=== PATIENT | male | born 1970 | race Two or more races ===

== ENCOUNTER 2023-02-05 10:12 | Emergency (ER) | payer OTHER ==
[~2023-02-05] VITALS: Ht 198.1 cm; Wt 99.3 kg
[2023-02-05 14:27] LABS: HEMATOCRIT 47.2 % (39.0-48.0); HEMOGLOBIN 15.5 g/dL (13-16.00); MEAN CELL VOLUME 87.1 fL (80.0-100.00); MEAN CORPUSCULAR HEMOGLOBIN 28.6 pg (27.00-32.0); MEAN CORPUSCULAR HGB CONC 32.9 g/dl (32.0-36.0); PLATELET COUNT 210 K/uL (150-450); RED BLOOD COUNT 5.43 M/uL (4.00-6.00); RED CELL DISTRIBUTION WIDTH 14.1 % (11.5-14.5)
[2023-02-05 14:55] LABS: ALBUMIN 3.6 gm/dL (3.4-5.0); BILIRUBIN TOTAL 1.09 mg/dL (0.3-1.2); CREATININE SERUM 0.94 mg/dL (0.70-1.30); GFR 84.95; GLOBULINA 3.4 G/DL (2.4-3.5); POTASSIUM 3.71 mEq/L (3.5-5.1)
[2023-02-05 16:43] LABS: PH,URINE 7.5 (5.0-8.0); URINE APPEARANCE Clear; URINE BILIRRUBIN Negative (NEGATIVE); URINE BLOOD Negative; URINE COLOR Yellow; URINE GLUCOSE Negative (NEGATIVE); URINE LEUKOCYTE Trace; URINE NITRATE Negative; URINE PROTEIN Negative (NEGATIVE)
[2023-02-05 16:47] LABS: URINE BACTERIA 22.6 uL (0.0-1933); URINE EPITHELIAL CELLS 2.3 uL (0.0-38.8); URINE RBC 4.3 uL (0.0-20.8); URINE WBC 3.2 uL (0.0-23.2)
== END 2023-02-05 19:12 | disposition home or self-care (01) ==
LOC: ER 10:13
PROVIDERS: Emergency Medicine
DX: R10.32 Left lower quadrant pain (principal); N20.0 Calculus of kidney